=== PATIENT | male | born 1930 | race Caucasian/White ===

== ENCOUNTER 2017-12-28 09:49 | Emergency (ER) | payer OTHER, MEDICARE ==
[~2017-12-28 09:49] MED LIST: AMLODIPINE10 MG PO; ASPIR 8181 MG PO; DORZOLAMIDE HYD10 M5 OP; LISINOPRIL40 MG PO; LUMIGAN 2.5 ML2.5 M1 OPH; METOPROLOL SUCC50 MG PO; PLAVIX 75MG TAB75 MG PO; PRAVASTATIN SOD80 MG PO
--- NOTE | 2017-12-28 11:44 | ED MVC/FALL/TRAUMA COMPLAINT ---
History of Present Illness General Chief Complaint: General Adult Stated Complaint: FALL THURSDAY, LEFT SIDE PAIN Source: patient, family, old records Exam Limitations: no limitations Allergies Coded Allergies: NO KNOWN ALLERGIES (07/05/12) Reconcile Medications Aspirin (Ecotrin) 81 MG TABLET.DR 2 TAB PO DAILY BLOOD THINNER (Reported) Bimatoprost (Lumigan 2.5 Ml) 0.01 % DROPS 1 GTT OPH QPM GLAUCOMA (Reported) Clopidogrel Bisulfate (Plavix) 75 MG TAB 1 TAB PO DAILY STROKE DORZOLAMIDE HCL/TIMOLOL MALEAT (Dorzolamide-Timolol Eye Drops) 22.3 MG-6.8 MG/ML DROPS 1 DROP OP BID GLAUCOMA (Reported) Pravastatin Sodium 80 MG TABLET 1 TAB PO QPM CHOLESTEROL (Reported) Triage Note: PER PT LOST BALANCE ON THURSDAY AND FELL IN BATH TUB, EMS CALLED FOR LIFT ASSIST BUT DID NOT COME TO HOSPITAL SINCE THAT TIME PAIN TO L SIDE OF ABD NO ECCHYMOSIS NO DEFORMITY NO PAIN WITH INSPIRATION Triage Nurses Notes Reviewed? yes Onset: Abrupt Duration: day(s): (3), constant Timing: recent history Severity: moderate Severity Numbers: 6 Injuries/Fall Location: chest, abdomen Method of Injury: fall Loss of Consciousness: no loss of consciousness Modifying Factors: Worsens With: palpation. 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 He states he did not hit his head however since the fall he's been having left upper quadrant abdominal chest wall pain. Pain is worse with palpation. No hemoptysis nausea vomiting. He states he did not hit his head. No hematuria. There is no neck back arm or leg pain. He is not taken anything for symptoms. After the fall EMS was on the scene to help assist him up however patient declining treatment at the time. No pain with inspiration no shortness of breath (Toni DAVIS,Ricky) Vital Signs & Intake/Output Vital Signs & Intake/Output Vital Signs Date Time Temp Pulse Resp B/P B/P Pulse O2 O2 Flow FiO2 Mean Ox Delivery Rate 12/28 1500 95 12/28 1459 97.7 82 20 155/76 98 Room Air 12/28 1221 97.7 65 18 160/84 99 Room Air 12/28 1011 97.0 67 22 138/70 91 Room Air (Ann Marie CHARLES,Tito Diaz) Past History Travel History Traveled to [place] past 21 day No Medical History Any Pertinent Medical History? see below for history Neurological: STROKE EENT: NONE Cardiovascular: myocardial infarction, STENTS CHOL Respiratory: NONE Gastrointestinal: NONE Hepatic: NONE Renal: NONE Musculoskeletal: NONE Psychiatric: NONE Endocrine: NONE History of MRSA: No History of VRE: No History of CDIFF: No Pneumonia Vaccine: 05/31/12 Influenza Vaccine: 05/01/09 Surgical History Surgical History: non-contributory Psychosocial History Who do you live with Spouse Services at Home None What is your primary language Gibraltarian Tobacco Use: Never used Family History Family History, If Any: FATHER FH: heart disease, Onset: 60+. Hx Contributory? No (Ricky Apple) Review of Systems Review of Systems Constitutional: Reports: see HPI. Comments Review of systems: See HPI, All other systems negative. Constitutional, no chills no fever, HEENT: no sore throat no congestion, no ear pain Cardiovascular: No chest pain , no palpitation Skin: no rashes, no change in skin Respiratory: No dyspnea no cough GI: No nausea no vomiting, no diarrhea Muscle skeletal: No joint pain, no back pain, no neck pain, Neurologic: , no headache Heme/endocrine: No bruising Immunology: No lymphadenopathy (Ricky Apple) Physical Exam Physical Exam General Appearance: well developed/nourished, alert, awake Comments: Well-developed well-nourished person in no acute distress HEENT: Normal EENT exam; PERRL, EOMI,HEAD is atraumatic. moist mucous membranes. Neck: Supple, nontender normal range of motion without pain or tenderness Back: Nontender, no CVA tenderness. Full range of motion Cardiovascular: Regular rate and rhythms no murmurs Respiratory: No crepitus, no ecchymosis, Chest tender to palpation over the left lateral chest wall There were no bony deformities, no asymmetry. No respiratory distress. Patient speaking in full complete sentences. Breath sounds clear to auscultation bilaterally: NO W/R/R Abdomen: Soft, tender to palpation over the left upper quadrant there is no ecchymosis no palpable splenomegaly nondistended, no appreciable organomegaly. Normal bowel sounds. No rebound/guarding, No appreciable enlargement of the abdominal aorta, No ascites. Extremity: No edema, upper and lower extremity are atraumatic with full range of motion of extremities both active and passive, 5 out of 5 strength noted to bilateral upper and lower extremities Neuro: Alert oriented x3, motor sensory normal, cranial nerves II through XII grossly intact. There were no obvious focal neurologic abnormalities. Skin: No appreciable rash on exposed skin, skin is warm and dry. Psych: Mood and affect is normal, memory and judgment is normal. Core Measures ACS in differential dx? No CVA/TIA Diagnosis No Sepsis Present: No Sepsis Focused Exam Completed? No (Toni DAVIS,Ricky) Progress Differential Diagnosis: abd injury, C/T/L spine injury, ext injury, pelvis injury, spinal cord injury Diagnostic Imaging: Viewed by Me: CT Scan. Discussed w/RAD: CT Scan. Radiology Impression: PATIENT: GRECIA FLORES PRESENT AGE: 87 PATIENT ACCOUNT NO: [id number] : 32 LOCATION: [facility] ORDERING PHYSICIAN: Ricky DAVIS SERVICE DATE: 12/28/17 EXAM TYPE: CAT - CT ABD & PELVIS W IV CONTRAST; CT CHEST W IV CONTRAST EXAMINATION: CT CHEST WITH IV CONTRAST CT ABDOMEN AND PELVIS WITH IV CONTRAST CLINICAL INFORMATION: Trauma. History of fall. Left upper quadrant and left chest pain. COMPARISON: Abdomen CT from 04/29/2014. CXR from 07/17/2014. TECHNIQUE: Multidetector CT imaging examination of the chest, abdomen and pelvis was performed with intravenous administration of 95 mL Optiray 320. Axial images are displayed at 0.625 mm and 5 mm slice thickness. Coronal and sagittal reformatted images were generated at the technologist's workstation and submitted for review. DLP: 604 mGy-cm FINDINGS: CHEST - LUNGS and PLEURA: Symmetric pleural- based opacities of scarring at lung apices. Bronchial oliva are thickened in both lungs. Mild atelectasis is present in lower lobes. The peribronchial opacity within the superior segment of the lingula has a somewhat fan-shape as it extends from the hilum to the anterior pleura. This has the configuration of atelectasis and/or peribronchial inflammatory change. However, an underlying endobronchial nodule is not excluded. This upper lobe abnormality is new compared to the chest radiograph of 07/17/2014. No pulmonary edema or pleural effusion. MEDIASTINUM: The heart size is normal. There is three-vessel coronary artery atherosclerotic calcification. Atherosclerosis of the thoracic aorta. No acute aortic injury. The mildly dilated ascending thoracic aorta measures 4.2 cm transverse, 4.2 cm AP (as measured at the level of the right pulmonary artery). Distal to the takeoff of the left subclavian artery, the aortic arch is 3.4 cm. Descending thoracic aorta measures 3 cm and short axis dimension, proximally, and 2.6 cm in short axis dimension, distally. No pericardial effusion. The esophagus and thyroid gland are unremarkable. LYMPHATICS: No pathologic sized axillary, hilar or mediastinal lymph nodes. CHEST WALL/BONES: Bones appear diffusely osteoporotic. Old, healed fractures of left anterior fourth rib and left anterolateral fifth rib. There are mild buckle deformities of the left lateral 10th rib and posterolateral 11th rib (new findings compared to 2013); however, no fracture lucencies are seen within these mildly deformed ribs. ABDOMEN AND PELVIS - HEPATOBILIARY: Unremarkable. PANCREAS: Unremarkable. SPLEEN: Spleen is normal in size. No splenic laceration or perisplenic hematoma. ADRENAL GLANDS: Normal. KIDNEYS, URETERS, BLADDER: There are bilateral renal cortical cysts, largest of the left lower pole measuring 9.1 x 7.8 cm (compared to size of 9.1 x 7.6 cm on 04/29/2014). No nephrolithiasis or hydronephrosis. The ureters are unremarkable. Urinary bladder is normal. GI TRACT AND PERITONEUM : Stomach is unremarkable. Bowel loops are normal in caliber. Mild diverticulosis of sigmoid colon. There are a few scattered diverticula of the right colon, as well. No evidence of inflammation or obstruction along the gastrointestinal tract. No ascites, hemoperitoneum or pneumoperitoneum. ABDOMINAL WALL: Unremarkable. VASCULAR: There is moderate atherosclerosis of the abdominal aorta without aneurysm or dissection. The infrarenal abdominal aorta measures up to a maximum of 2.6 cm AP diameter. 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 The right common iliac artery aneurysm measures 3 cm transverse diameter and left common iliac artery aneurysm 2.2 cm diameter (compared to 2.7 cm and 1.8 cm, respectively, on 04/29/2014). 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 The proximal splenic artery is dilated up to 1.6 cm AP diameter, unchanged compared to 04/29/2014. LYMPH NODES: Normal. PELVIC VISCERA: Unremarkable. OSSEOUS STRUCTURES: Bones are diffusely osteoporotic. L4-L5 mild facet arthropathy and minimal grade 1 anterolisthesis of L4 on L5. 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 No acute fractures within the lumbar spine, pelvis or proximal femurs. IMPRESSION: 1. Bronchial oliva are thickened in both lungs. Query whether there is history of chronic cigarette smoking, bronchitis and/or asthma. The abnormal, fan-shaped opacity of atelectasis in the superior segment of the left upper lobe is an unexpected finding. This is new compared to the chest radiograph from . Query whether patient has any recent history of pneumonia. An underlying endobronchial nodule in this area is not excluded. Follow-up is recommended. 2. 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 The ectatic descending thoracic aorta is 4.2 cm diameter. No acute aortic injury. 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 3. Bones are diffusely osteoporotic. There are old, healed fractures of the left fourth and fifth ribs. The buckle deformities of the left lateral 10th and 11th ribs are new compared to 04/29/2014. 4. No evidence of splenic laceration or other abdominal organ injury. DICTATED BY: Gerard Johnson MD DATE/TIME DICTATED:12/28/171411 DISH CLOTH INSPECTOR:[place] DATE/TIME TRANSCRIBED:12/28/171411 CONFIDENTIAL, DO NOT COPY WITHOUT APPROPRIATE AUTHORIZATION. <Electronically signed in Other Vendor System> SIGNED BY: Gerard Johnson MD 12/28/17 [id number] (Ricky Apple) Plan of Care: Orders Procedure Date/time Status INCENTIVE SPIROMETRY TRX (GEN) 12/28 1505 Complete CBC WITHOUT DIFFERENTIAL 12/28 1150 Complete BASIC METABOLIC PANEL 12/28 1150 Complete Laboratory Tests 12/28/17 1208: Anion Gap 11, Estimated GFR > 60, BUN/Creatinine Ratio 22.0, Glucose 120 H, Calcium 9.4, CBC w Diff NO MAN DIFF REQ, RBC 4.36 L, MCV 92.2, MCH 31.3 H, MCHC 33.9, RDW 13.8, MPV 8.3, Gran % 70.9, Lymphocytes % 15.8 L, Monocytes % 9.8 H, Eosinophils % 3.2, Basophils % 0.3, Absolute Granulocytes 6.6 H, Absolute Lymphocytes 1.5, Absolute Monocytes 0.9 H, Absolute Eosinophils 0.3, Absolute Basophils 0 Patient is declining anything for pain when offered labs CAT scans ordered. Case discussed with Dr. Jesus agrees with plan On repeat evaluation patient resting in no acute distress again is declining anything for pain offered pending CAT scan 1500 I discussed with the patient and his his CAT scan results and incidental findings the patient is a former smoker. He is us appointment on January 13 scheduled with his primary care physician which I advised they go over his CAT scan findings at the time. I discussed with him plan of care and sent for spirometer provided return precautions were discussed at length he is again declining anything for pain (Ricky Apple) (Ann Marie CHARLES,Tito Diaz) Departure Departure Time of Disposition: 2 Disposition: HOME OR SELF CARE Condition: Stable Clinical Impression Primary Impression: Rib fracture Secondary Impressions: Lung nodule Referrals: Cierra Atkins MD (PCP/Family) Additional Instructions: Incentive spirometer as discussed Rest, ice, Tylenol for pain. Follow up with your primary care physician as scheduled coming up for follow-up evaluation and also regarding incidental finding on CAT scan regarding the nodule. return with any concerns. Departure Forms: Customer Survey General Discharge Information (Ricky Apple) PA/MARKETING OPERATIONS SPECIALIST Co-Sign Statement Statement: ED Attending supervision documentation- [X] I saw and evaluated the patient. I have also reviewed all the pertinent lab results and diagnostic results. I agree with the findings and the plan of care as documented in the PA's/MARKETING OPERATIONS SPECIALIST's documentation. Patient presents for evaluation of injury sustained status post fall 2 days ago. Physical examination reveals tenderness without crepitus over the left ribs. [] I have reviewed the ED Record and agree with the PA's/MARKETING OPERATIONS SPECIALIST's documentation. [] Additions or exceptions (if any) to the PAs/MARKETING OPERATIONS SPECIALIST's note and plan are summarized below: [] (Ann Marie CHARLES,Tito Diaz)
[2017-12-28 12:27] LABS: ABSOLUTE BASOPHIL COUNT 0 /CUMM (0.0-0.2); ABSOLUTE EOSINOPHIL COUNT 0.3 /CUMM (0.0-0.7); ABSOLUTE GRANULOCYTE CT 6.6 /CUMM (1.4-6.5); ABSOLUTE LYMPH COUNT 1.5 /CUMM (1.2-3.4); ABSOLUTE MONOCYTE COUNT 0.9 /CUMM (0.10-0.60); BASOPHIL % 0.3 % (0.0-2.0); EOSINOPHIL % 3.2 % (0-5); GRANULOCYTE % 70.9 % (42.2-75.2); HEMATOCRIT 40.2 % (42-52); MEAN CORPUSCULAR HGB 31.3 PG (27.0-31.0); MEAN CORPUSCULAR HGB CONC 33.9 G/DL (33.0-37.0); MEAN CORPUSCULAR VOLUME 92.2 FL (80.0-94.0); MEAN PLATELET VOLUME 8.3 FL (7.4-10.4); PLATELET COUNT 218 /CUMM (130-400); RBC DISTRIBUTION WIDTH 13.8 % (11.5-14.5); RED BLOOD CELL CT 4.36 /CUMM (4.70-6.10); WHITE BLOOD CELL COUNT 9.3 /CUMM (4.8-10.8)
--- NOTE | 2017-12-28 14:43 | CT SCAN REPORT ---
EXAMINATION: CT CHEST WITH IV CONTRAST CT ABDOMEN AND PELVIS WITH IV CONTRAST CLINICAL INFORMATION: Trauma. History of fall. Left upper quadrant and left chest pain. COMPARISON: Abdomen CT from 04/29/2014. CXR from 07/17/2014. TECHNIQUE: Multidetector CT imaging examination of the chest, abdomen and pelvis was performed with intravenous administration of 95 mL Optiray 320. Axial images are displayed at 0.625 mm and 5 mm slice thickness. Coronal and sagittal reformatted images were generated at the technologist's workstation and submitted for review. DLP: 604 mGy-cm FINDINGS: CHEST - LUNGS and PLEURA: Symmetric pleural-based opacities of scarring at lung apices. Bronchial oliva are thickened in both lungs. Mild atelectasis is present in lower lobes. The peribronchial opacity within the superior segment of the lingula has a somewhat fan-shape as it extends from the hilum to the anterior pleura. This has the configuration of atelectasis and/or peribronchial inflammatory change. However, an underlying endobronchial nodule is not excluded. This upper lobe abnormality is new compared to the chest radiograph of 07/17/2014. No pulmonary edema or pleural effusion. MEDIASTINUM: The heart size is normal. There is three-vessel coronary artery atherosclerotic calcification. Atherosclerosis of the thoracic aorta. No acute aortic injury. The mildly dilated ascending thoracic aorta measures 4.2 cm transverse, 4.2 cm AP (as measured at the level of the right pulmonary artery). Distal to the takeoff of the left subclavian artery, the aortic arch is 3.4 cm. Descending thoracic aorta measures 3 cm and short axis dimension, proximally, and 2.6 cm in short axis dimension, distally. No pericardial effusion. The esophagus and thyroid gland are unremarkable. LYMPHATICS: No pathologic sized axillary, hilar or mediastinal lymph nodes. CHEST WALL/BONES: Bones appear diffusely osteoporotic. Old, healed fractures of left anterior fourth rib and left anterolateral fifth rib. There are mild buckle deformities of the left lateral 10th rib and posterolateral 11th rib (new findings compared to 04/29/2014); however, no fracture lucencies are seen within these mildly deformed ribs. ABDOMEN AND PELVIS - HEPATOBILIARY: Unremarkable. PANCREAS: Unremarkable. SPLEEN: Spleen is normal in size. No splenic laceration or perisplenic hematoma. ADRENAL GLANDS: Normal. KIDNEYS, URETERS, BLADDER: There are bilateral renal cortical cysts, largest of the left lower pole measuring 9.1 x 7.8 cm (compared to size of 9.1 x 7.6 cm on 04/29/2014). No nephrolithiasis or hydronephrosis. The ureters are unremarkable. Urinary bladder is normal. GI TRACT AND PERITONEUM: Stomach is unremarkable. Bowel loops are normal in caliber. Mild diverticulosis of sigmoid colon. There are a few scattered diverticula of the right colon, as well. No evidence of inflammation or obstruction along the gastrointestinal tract. No ascites, hemoperitoneum or pneumoperitoneum. ABDOMINAL WALL: Unremarkable. VASCULAR: There is moderate atherosclerosis of the abdominal aorta without aneurysm or dissection. The infrarenal abdominal aorta measures up to a maximum of 2.6 cm AP diameter. 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 The right common iliac artery aneurysm measures 3 cm transverse diameter and left common iliac artery aneurysm 2.2 cm diameter (compared to 2.7 cm and 1.8 cm, respectively, on 04/29/2014). 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 The proximal splenic artery is dilated up to 1.6 cm AP diameter, unchanged compared to 04/29/2014. LYMPH NODES: Normal. PELVIC VISCERA: Unremarkable. OSSEOUS STRUCTURES: Bones are diffusely osteoporotic. L4-L5 mild facet arthropathy and minimal grade 1 anterolisthesis of L4 on L5. 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 No acute fractures within the lumbar spine, pelvis or proximal femurs. IMPRESSION: 1. Bronchial oliva are thickened in both lungs. Query whether there is history of chronic cigarette smoking, bronchitis and/or asthma. The abnormal, fan-shaped opacity of atelectasis in the superior segment of the left upper lobe is an unexpected finding. This is new compared to the chest radiograph from 07/17/2014. Query whether patient has any recent history of pneumonia. An underlying endobronchial nodule in this area is not excluded. Follow-up is recommended. 2. 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 The ectatic descending thoracic aorta is 4.2 cm diameter. No acute aortic injury. 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 3. Bones are diffusely osteoporotic. There are old, healed fractures of the left fourth and fifth ribs. The buckle deformities of the left lateral 10th and 11th ribs are new compared to 04/29/2014. 4. No evidence of splenic laceration or other abdominal organ injury.
[2017-12-28 14:59] VITALS: BP 155/76
[2018-01-17] MEDS ORDERED: PRAVASTATIN SOD40 M2 PO (10:48)
[2018-01-17] MEDS ORDERED: LISINOPRIL40 M1 PO (10:48)
[2018-01-17] MEDS ORDERED: CLOPIDOGREL75 M1 PO (10:48)
[2018-01-17] MEDS ORDERED: DORZOLAMIDE-TIM10 ML OPH (10:49)
[2018-01-17] MEDS ORDERED: ASPIRIN81 M4 PO (10:49)
[2018-01-17] MEDS ORDERED: VITAMIN D31000 UNI1 PO (10:50)
[2018-01-17] MEDS ORDERED: VITAMIN B-121000 MC3 PO (10:51)
[2018-01-17] MEDS ORDERED: BENADRYL25 MG PO (10:52)
[2018-01-17] MEDS ORDERED: TAMSULOSIN HCL0.4 M1 PO (10:52)
== END 2017-12-28 15:44 ==
LOC: ERH 09:49
PROVIDERS: Physician Assistant Medical
DX: S22.42XA Multiple fractures of ribs, left side, initial encounter for closed fracture (principal); R91.1 Solitary pulmonary nodule; W18.2XXA Fall in (into) shower or empty bathtub, initial encounter; Y92.9 Unspecified place or not applicable; Y93.9 Activity, unspecified
CPT/HCPCS: 1255; 74177